=== PATIENT | male | born 1990 | race Caucasian/White ===

== ENCOUNTER 2025-04-12 06:21 | Emergency (ER) | payer OTHER, SELFPAY ==
[2025-04-12] VITALS (8 sets, daily range): BP systolic 126–152; BP diastolic 69–88; BMI 36.2
[2025-04-12 06:52] LABS: Hematocrit 43.2 % (39.0-52.0); Hemoglobin 14.7 g/dL (13.0-18.0); Mean Corp Hgb Conc. 34.0 g/dL (33.0-37.0); Mean Corpuscular Volume 86.6 fL (80.0-94.0); Nucleated Red Blood Cells % 0 % (-); Platelet Count 182 10^3/uL (130-400); Red Cell Dist. Width 13.0 % (11.5-14.5)
[2025-04-12 07:04] LABS: ALT (SGPT) 36 U/L (0-50); AST (SGOT) 29 U/L (17-59); Albumin 4.7 g/dl (3.5-5.0); Alkaline Phosphatase 42 U/L (38-126); Blood Urea Nitrogen 21 mg/dl (9-20); Calcium 9.7 mg/dl (8.4-10.2); Carbon Dioxide 22 mmol/L (22-30); Chloride 111 mmol/L (98-107); Glucose 103 mg/dl (70-99); Potassium 4.2 mmol/L (3.5-5.1); Sodium 141 mmol/L (135-145); Total Protein 7.6 g/dl (6.3-8.2); eGFR > 60.00
[2025-04-12 07:15] LABS: Troponin I < 0.012 ng/ml
--- NOTE | 2025-04-12 09:32 | ED.GENMED ---
History of Present Illness
General
Chief Complaint: Chest Pain
Source: patient
Exam Limitations: none
Time Seen by Provider: 04/12/25 09:14
Nursing documentation reviewed up to this point in time: agreed with
History of Present Illness
History of Present Illness:
Patient is a 34-year-old male presents to the ER for evaluation. Patient has a past medical history of pericarditis 1-1/2 years ago associated with a' systemic fungal infection.' He was living in [place] at that time. He was followed by
cardiology in [place] however recently moved to this area(several months ago) he did however move into a house over the weekend and did a lot of heavy lifting
. Yesterday morning he noticed midsternal chest pain which seem worse with laying down and was mostly consistent throughout the day. Last night he had a little jaw pain and woke up this morning with worsening jaw pain which is what prompted him to
come to the ER. He does have pain with deep breath and reports the area is sore to touch. He initially associated this with moving heavy boxes over the weekend however because of his history wanted to come to the ER for evaluation. He denies any
recent injury cough fever chills.
He does have a history of mitral regurgitation
He does not smoke. His dad has a history of CAD and had an MS in his 50s.
Phy Exam
General Physical Exam
General Presentation: no apparent distress
General age: appears stated age
General Skin: warm and dry
General Habitus: normal
General Mental: alert
General Hydration: appears well hydrated
Cardiovascular Exam
Cardiovascular Exam: regular rate/rhythm, normal peripheral pulses and diastolic murmur
Pulmonary Exam
Pulmonary Exam: lungs clear, no respiratory distress and other (Chest is tender on exam)
Neurological Exam
Neurological Exam: alert and oriented x3
Musculoskeletal Exam
Musculoskeletal Exam: full ROM
Skin Exam
Skin Exam: normal color and warm/dry
Psychiatric Exam
Psychiatric Exam: normal mood/affect
Scores
Heart Score for Chest Pain Patients
STEMI patient?: Not applicable
Course
Orders/Labs/Results
Orders:
Orders
04/12/25 06:28
Electrocardiogram (*1) Urgent
Reason for Study: Chest Pain
EKG- Treatment ONCE
04/12/25 06:37
Complete Blood Count/With Diff Urgent
Comprehensive Metabolic Panel Urgent
Troponin I Urgent
04/12/25 09:31
Ketorolac [Toradol] 15 mg IV NOW STA
04/12/25 09:32
Electrocardiogram (*1) Urgent
Reason for Study: Chest Pain
EKG- Treatment ONCE
Chest [CR Chest - 2 Views ] Urgent
Comment:
Reason For Exam: cp
04/12/25 10:20
Troponin I Urgent
04/12/25 12:18
Echo 2D MMode Color/Doppler [Echo 2D MMode Color/Doppler] Urgent
Reason for Study: chest pain
04/12/25 12:53
DDimer [D-Dimer] Urgent
Abnormal Lab Results
04/12/25
06:37
MPV 10.7 H fL
(7.4-10.4)
Chloride 111 H mmol/L
(98-107)
BUN 21 H mg/dl
(9-20)
Glucose 103 H mg/dl
(70-99)
04/12/25 06:37
04/12/25 06:37
Vital Signs
Initial and Last Documented VS:
Initial Vital Signs
Temp Pulse Resp BP Pulse Ox
98 F 68 20 152/88 100
04/12/25 06:24 04/12/25 06:24 04/12/25 06:24 04/12/25 06:24 04/12/25 06:24
Last Documented Vital Signs
Temp Pulse Resp BP Pulse Ox
98 F 73 19 135/76 99
04/12/25 06:24 04/12/25 15:15 04/12/25 14:15 04/12/25 15:00 04/12/25 15:15
Molder Sweep consulted with Physician
Molder Sweep consulted with physician?: Yes
Name of Physician Consulted: Yasmeen
MDM/Problems Addressed
Differential Diagnosis Includes:
Not limited to ACS /muscular chest pain
MDM/Problems Addressed:
As documented patient is a 34-year-old male with past medical history of pericarditis regurgitation presents to the ER with chest discomfort neck discomfort. Patient did heavy lifting moving into a house this weekend. On exam he does examine very
muscular. He had no shortness of breath. He moved from [place] however the move was 6 months ago. He has nontachycardic not hypoxic. D-dimer was done and negative. Patient had 2 negative cardiac troponins. No acute findings on EKG. Patient
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 On exam he does have a diastolic murmur and has significant mitral regurg history. Case discussed with ED physician.
Case reviewed with cardiology Dr. Cardenas and echo was ordered. Patient does have mitral valve prolapse with moderate to severe mitral regurgitation. He has a normal left ventricular size and systolic function and normal ejection fraction.
Patient is well-appearing requesting small muscle laxer likely muscular this is reasonable we will send Flexeril to pharmacy. Discussed ibuprofen Tylenol. Will place on chest pain hotline. He is well-appearing here in the ER stable for her to home
*Radiology
Radiology exam reviewed: radiology read reviewed
*Pulse Oximetry
SaO2: 100
Oxygen Mode of Delivery: Room air
Patient hypoxic: no
*EKG
Interpreted by ED Provider?: Yes
Interpretation: abnormal
Heart Rate: 76
Rate: normal
Rhythm: sinus
Ischemia: no ischemia
*Critical Care Note
Total Time (30-74mins, 75-104mins- exclusive of procedures): Not Applicable
ED Attending Note
-
Portions of this chart may have been created with voice recognition software.� Occasional wrong word or��sound alike� substitutions may have occurred due to the inherent limitations of voice recognition software.
Discharge Plan
Departure
Patient Disposition: Home (Routine Discharge)
Date of Disposition: 04/12/25
Time of Disposition: 16:41
Patient with high blood pressure during this ER visit?: Yes
Condition: Fair
Covid-19: Not Applicable
Discharge Problem:
Chest pain
Instructions: Chest Pain CBC Follow Up, BLOOD PRESSURE
Prescriptions:
New
cyclobenzaprine 10 mg tablet
10 mg PO Q8H PRN (Reason: muscle spasm) Qty: 10 0RF
Referrals:
Arnoldo Cardenas MD [Active, Cardiology]
NONE,* [Family Provider, Internal Medicine]
Activity Restrictions/Additional Instructions:
You were placed on the chest pain hotline .
you should receive a phone call from the office in the next 1 to 2 days; if you do not please call the office to schedule an appointment as soon as possible. You may continue to alternate between ibuprofen and Tylenol. Warm moist heat to chest and
neck area. Muscle relaxer as needed. This was sent to your pharmacy. This will cause drowsiness no driving or drinking alcohol taking this medication. Return if any worsening of symptoms
Interventions
Interventions:
*Risk Screen - Suicide Last Done: 04/12/25 06:24
*General Assessment Last Done: 04/12/25 10:19
*Neglect/Abuse Screening Last Done: 04/12/25 06:24
*ED- Fall Risk Assessment Last Done: 04/12/25 10:19
*ED COVID-19 Vaccine History Last Done: 04/12/25 10:19
ED- Cardiac Assessment Last Done: 04/12/25 11:49
Discharge Date and Time
Print Language: CYMRO
[2025-04-12] MEDS: TORADOL 15 MG IV (10:18)
[2025-04-12 10:53] LABS: Troponin I < 0.012 ng/ml
[2025-04-12 13:18] LABS: D-Dimer 0.28 ug/mlFEU (0.00-0.50)
== END 2025-04-12 16:54 | disposition home or self-care (01) ==
LOC: EMR 06:21
PROVIDERS: Emergency Medicine; Nurse Practitioner; EMERGENCY PHYSICIAN Student in an Organized Health Care Education/Training Program
DX: R07.9 Chest pain, unspecified (principal); R01.1 Cardiac murmur, unspecified; I34.0 Nonrheumatic mitral (valve) insufficiency; I34.1 Nonrheumatic mitral (valve) prolapse; Z86.79 Personal history of other diseases of the circulatory system; Z82.49 Family history of ischemic heart disease and other diseases of the circulatory system
CPT/HCPCS: 99284; 96374; 71046; 80053; 84484; 85025; 85379; 93005; 93306

== ENCOUNTER → 2025-06-01 12:55 | Outpatient (REF) | payer OTHER, SELFPAY | LOC: RCS 12:55 | PROVIDERS: ATTENDING PHYSICIAN Internal Medicine | DX: I34.1 Nonrheumatic mitral (valve) prolapse (principal); Z02.4 Encounter for examination for driving license | CPT/HCPCS: 93017; 93350 ==